=== PATIENT | male | born 1985 | race Caucasian/White ===

== ENCOUNTER 2022-07-21 09:48 | Emergency (ER) | payer SELFPAY ==
[~2022-07-21] VITALS: Ht 182.9 cm; Wt 81.6 kg
[2022-07-21 11:51] VITALS: BP 135/64
[2022-07-21] MEDS ORDERED: IBUP600T28 PO (12:29)
[2022-07-21] MEDS ORDERED: DIPH25CA66 PO (12:29)
[2022-07-21] MEDS ORDERED: IBUPROFEN 600 MG TAB PO ONE (12:30)
[2022-07-21] MEDS ORDERED: diphenhdrAMINE HCL 50 MG/1 ML VL IM ONE (12:30)
== END 2022-07-21 12:49 | disposition home or self-care (01) ==
LOC: ER 09:48
DX: B01.9 Varicella without complication (principal)
CPT/HCPCS: 96372; 99283; J1200

== ENCOUNTER 2022-08-23 07:23 | Emergency (ER) | payer SELFPAY ==
[~2022-08-23] VITALS: Ht 182.9 cm; Wt 80.0 kg
[~2022-08-23 07:23] MED LIST: DIPH25CA66 PO; IBUP600T28 PO
[2022-08-23] MEDS ORDERED: ACETAMINOPHEN 500 MG TAB PO ONE (08:45)
[2022-08-23] MEDS ORDERED: ONDANSETRON ODT 4 MG TAB PO ONE (08:45)
[2022-08-23 09:08] VITALS: BP 133/74
[2022-08-23 09:10] LABS: Basophils # (auto) 0 10 ^3/uL (0-0.2); Basophils % (auto) 0.3 % (0.0-2.0); Eosinophils # (auto) 0 10 ^3/uL (0-0.8); Eosinophils % (auto) 0.2 % (0.0-7.0); Hematocrit 45.8 % (41.0-53.0); Hemoglobin 16.1 g/dL (13.5-17.5); Lymphocytes # (auto) 0.6 10 ^3/uL (0.4-5.4); Lymphocytes % (auto) 11.8 % (10.0-50.0); Mean Corpuscular Hemoglobin 34.9 pg (28.0-32.0); Mean Corpuscular Hgb Conc. 35.1 g/dL (32.0-36.0); Mean Corpuscular Volume 99.7 fL (80.0-100.0); Monocytes # (auto) 0.4 10 ^3/uL (0-1.3); Neutrophils # (auto) 4.2 10 ^3/uL (1.6-8.6); Neutrophils % (auto) 79.7 % (37.0-80.0); Nucleated Red Blood Cells % 0.1 %; Red Cell Distribution Width 13.1 % (11.8-14.3); White Blood Cell 5.3 10^3/uL (4.4-10.8)
[2022-08-23] MEDS ORDERED: ONDA-144 PO (09:23)
[2022-08-23] MEDS ORDERED: ACET1CAP14 PO (09:23)
[2022-08-23 09:27] LABS: Albumin 3.9 g/dL (3.4-5.0); Calcium 8.8 mg/dL (8.5-10.1); Potassium 3.9 mmol/L (3.5-5.1)
[2022-08-23 09:31] LABS: Bilirubin, Total 0.4 mg/dL (0.2-1.0); Total Protein 7.4 g/dL (6.4-8.2)
== END 2022-08-23 09:49 | disposition home or self-care (01) ==
LOC: ER 07:23
DX: A08.4 Viral intestinal infection, unspecified (principal); Z20.822 Contact with and (suspected) exposure to COVID-19; Z88.6 Allergy status to analgesic agent
CPT/HCPCS: 36415; 80053; 85025; 87426; 87804; 93005; 99284; Q0162